=== PATIENT | male | born 1960 | race Caucasian/White ===

== ENCOUNTER 2017-12-19 16:29 | Emergency (ER) | payer MEDICAID, SELFPAY ==
[2017-12-19 16:31] VITALS: BP 122/74; PULSE 82; RESP 18; TEMP 36.4; O2SAT 96; BMI 27.6
[2017-12-19 17:41] LABS: Absolute Lymphocyte Count 1.88 X10^3/ul (0.83-4.51); Absolute Neutrophil Count 10.2 X10^3/uL (2.0-7.7); Basophil# 0.06 X10^3/uL; Basophil% 0.4 % (0-1); Eosinophil# 0.19 X10^3/uL; Eosinophils% 1.4 % (0-5); Hematocrit 41.7 % (40-54); Hemoglobin 14.7 g/dl (13.0-16.5); Lymphocyte # 1.88 X10^3/ul (4.0); Lymphocyte % 13.7 % (19-41); Mean Corp Hgb Conc 35.3 g/gl (32-36); Mean Corpuscular Volume 90.7 fL (80-94); Mean Platelet Vol. 9.2 fl (6.2-12.0); Monocyte# 1.28 X10^3/uL; Monocyte% 9.3 % (0-10); Neutrophil # 10.24 X10^3/uL (2.7-7.7); Neutrophil % 74.9 % (47-70); Platelet Count 212 K/mm3 (150-450); RBC Distribution Width CV 13.1 % (11.6-14.6); RBC Distribution Width SD 42.6 fl (35.1-43.9); White Blood Count 13.7 K/mm3 (4.4-11.0)
--- NOTE | 2017-12-19 17:47 | NURSING ---
PAGED DR KRISTIN TAYLOR, [facility] [employer], FOR DR FLYNN. HE HAS 1 HR TO RESPOND
--- NOTE | 2017-12-19 17:52 | NURSING ---
TOBI CALLED BACK FOR DR FLYNN
[2017-12-19 18:00] LABS: POSITIVE COUNT NO; POSITIVE DIFFERENTIAL NO; POSITIVE MORPHOLOGY NO
--- NOTE | 2017-12-19 18:06 | ED.VIS.GEN ---
History of Present Illness Chief Complaint: Wound Informant: Patient, Family Onset: Days - 3 Context: Gradual Onset Timing: Continuous Quality: sore Location: back Current Severity: Severe Maximum Severity: Severe Worsened by: laying against wound, palpation Relieved by: nothing Associated Symptoms: malaise, low-grade fevers Narrative: Patient had surgery 1 week ago today for melanoma on his back, including lymph node sampling from both axillae. His pain was manageable postoperatively, but in the past 3 days or so, he has been having significant increase in the pain in the area of the surgery on his back and has been draining a profuse amount of fluid according to his family who keeps changing the gauze over top of it. It has been watery and bloody, no pus. He has been feeling malaised and having low-grade temperatures in a period of time as well. He was seen on Sunday and the wounds looked okay, but according to the family who monitors it, it is looking more red around the incision since then. - Past Medical History (1) Melanoma Status: Chronic (2) HTN (hypertension) Status: Chronic (3) Hyperlipidemia Status: Chronic Past Medical History - Allergies and Home Meds Allergies/Adverse Reactions: Allergies amoxicillin trihydrate [From Augmentin] Allergy (Verified 12/19/17 16:31) Hives potassium clavulanate [From Augmentin] Allergy (Verified 12/19/17 16:31) Hives Primary Care Physician: Kiya Serna MD [Primary Care Provider] - Smoking Status: Former smoker Review of Systems General: Reports: Fever, Malaise Respiratory: Denies: Dyspnea, Cough Gastrointestinal: Denies: Abdominal pain, Nausea, Vomiting, Diarrhea Musculoskeletal: Reports: Back pain. Denies: Neck pain, Swelling, Extremity Pain Neurological: Denies: Headache, Weakness, Parasthesia, Numbness Physical Exam Vital Signs/Narrative: Vital Signs Temp Pulse Resp BP Pulse Ox 12/19/17 16:31 97.6 F L 82 18 122/74 H 96 Inital Vital Signs reviewed: Yes General: Well nourished, Well developed Head: Normocephalic, Atraumatic Eyes: Perrl, EOMI ENT: Moist mucous membranes, No rhinorrhea Neck: Supple, Nontender, No lymphadenopathy Respiratory: No distress, Chest nontender Back: - - Vertical thoracic incision just left of midline about 10 inches in length is erythematous along the distribution of the incision without a significant cellulitis, and swollen diffusely with active serosanguineous discharge from the center of it. There is no dehiscence. There are several different sutures intact; a running suture at the top, a running suture at the bottom, and several simple interrupted sutures along the center, they all appear to be a Prolene. The entire area is very tender. Extremities: Nontender, No edema, - - Axillary surgical incisions are healing well without tenderness, erythema, or dehiscence. There is postoperative nontender ecchymoses. Skin: Normal color, No rash Neurological: Alert, Oriented x3, Cranial nerves II-XII grossly intact, Normal Strength, Normal Sensation Psychological: Normal affect Diagnostic/Tx/Re-eval Laboratory Tests 12/19/17 Range/Units 17:30 WBC 13.7 H (4.4-11.0) K/mm3 RBC 4.60 (4.6-6.2) M/mm3 Hgb 14.7 (13.0-16.5) g/dl Hct 41.7 (40-54) % MCV 90.7 (80-94) fL MCH 32.0 (27.0-32.0) pg MCHC 35.3 (32-36) g/gl RDW 13.1 (11.6-14.6) % RDW Differential 42.6 (35.1-43.9) fl Plt Count 212 (150-450) K/mm3 MPV 9.2 (6.2-12.0) fl Immature Gran % (Auto) 0.300 (0.0-0.9) % Neut % (Auto) 74.9 H (47-70) % Lymph % (Auto) 13.7 L (19-41) % [place] % (Auto) 9.3 (0-10) % Eos % (Auto) 1.4 (0-5) % Baso % (Auto) 0.4 (0-1) % Absolute Neuts (auto) 10.2 H (2.0-7.7) X10^3/uL Absolute Lymphs (auto) 1.88 (0.83-4.51) X10^3/ul Total Counted Not Reportable - Medical Decision Making Labs show mild leukocytosis. I discussed with the plastics resident, who was actually in the operating room for this patient's case. He discussed with the surgeon, they agreed that it would be advised that I attempt to aspirate as much fluid from the surgical site as possible. I did this after sterilizing the center of the wound, from which the fluid was being expressed, with Betadine, followed by inserting an 18-gauge needle into the pre-existing hole painlessly and aspirating a total of 30 cc of serosanguineous fluid. Additional fluid was expressed by gently pressing on the entire area, from the same hole. I did this is much as I could. He was given a dose of IV vancomycin, surgery agreed that he could be discharged on Bactrim to cover MRSA, and will set up a follow-up appointment for him to be seen in 2 days. As discussed with patient, the fluid was sent for a wound culture. ED Disposition - Plan for ED Patient: Disposition: Home or Assisted Living Chief Complaint: Wound Diagnosis: Postoperative wound infection Instructions: ED Wound Infec After Surgery, Wound Culture Prescriptions: Smz/Tmp Ds [Bactrim Ds] 1 tab PO BID #20 tab Referrals: Al Calvert [Other] (or PA on 12/21/2017)
[2017-12-19 18:46] VITALS: RESP 16; O2SAT 98
[2017-12-19] MEDS: Morphine 4 MG/ML Syringe IV (19:11)
[2017-12-19 20:11] VITALS: BP 128/78; PULSE 88; RESP 16; O2SAT 98
== END 2017-12-19 20:13 | disposition home or self-care (01) ==
PROVIDERS: Emergency Provider Emergency Medicine; Family Provider Internal Medicine; PCP Internal Medicine
DX: T81.49XA Infection following a procedure, other surgical site, initial encounter (principal); I10 Essential (primary) hypertension; E78.5 Hyperlipidemia, unspecified; Z85.820 Personal history of malignant melanoma of skin; Z87.891 Personal history of nicotine dependence
CPT/HCPCS: 10021; 85025; 87070; 87077; 87186; 87205; 96365; 96366; 96375; 99283; J7040; A4216

== ENCOUNTER 2018-04-01 15:33 | Outpatient (RCR) | payer MEDICAID, SELFPAY ==
--- NOTE | 2018-04-02 07:48 | HP.OTEVAL_ITS ---
Patient's Visit Information JOHN CORRIGAN is a 57 year old M, referred to Occupational Therapy by Shukri Zeng MD, with a diagnosis of Left dypuytren's contracture, left MF trigger finger. Date of Evaluation: 04/01/18 Occupational Therapist: Adelia Lawson, OTR/L, CHT - Subjective Subjective: pt states he has had Dupuytren's contracture for years. pt states it was to the point he could not hold a hammer, or put his left hand in his pocket. Pt states he also developed a trigger finger on his left MF and opted to have the trigger finger released as well. pt had injection of sunday and attends today following manipulation in need of custom extension orthosis for left hand. - ROM MP: left LF 0/25 PIP: left LF -35/65 DIP: left LF 0/20 ROM Comments: pt demo all other digit ROM WFL. left LF more limited at this time. - Quick DASH-Disab of Arm,Shoulder& Hand Quick DASH Score: 72.7250 - Goals Goal:: pt will demo the ability to form a composite fist to hold and recieve coins by d/c. pt will demo digit ext to no less than-[address] hand in pocket ind. by d/c Goal:: pt will demo a understanding of donning/doffing of custom orthosis ind. at end of 1st session. pt will demo understanding of wear and care of orthosis and to return to facility to have therapist adj orthosis as needed by end of 1st session. - Rehabilitation General Assessment: S/P left xiafllex injection left IF/LF with left MF trigger finger release on . Pt arrives with order for left hand orthoplast etension splint and motion program. Pt demo need for skilled OT services to ensure pts use of custom orthosis and performance of HEP. Pt was fabricated custom orthosis for left hand, ed. on use and precautions. pt also ed. on tendon gulide ex. to regain functional ROM. pt ed. on edema control paul. and to perform ROM ex about every hour for 10 min. pt demo understanding of orthosis use and HEP and is agreeable to POC Rehabilitation Potential: Excellent - Anticipated Interventions Anticipated Interventions: A/AAROM/PROM, Edema Control, Orthoses, Fine Motor Coord/Santos - Visit Plan Frequency: Every Other Week Duration: 2 Weeks TEXT: Thank you for the opportunity to evaluate your patient. For Medicare and Medicare HMO plans, please review the plan of care and approve it. It will need to be FAXED BACK to us at [phone] for Medicare purposes. Please let me know if there are questions or concerns regarding this plan of care. Physician Signature: Date:
--- NOTE | 2018-06-05 14:22 | HP.OT.NRP ---
HP - Discharge Summary - Patient Information JOHN CORRIGAN was seen in my office for initial evaluation on 04/01/18. The following Plan of Care was established for this patient: Initial Frequency: Every Other Week Initial Duration: 2 Weeks - Anticipated Interventions Anticipated Interventions: A/AAROM/PROM, Edema Control, Orthoses, Fine Motor Coord/Santos This patient was last seen in our office 04/01/18. Pertinent comments regarding their Occupational therapy will appear below: PT seen for initial OT eval only. No further therapy sessions have been scheduled pt d/c at this time. At this point I will be discontinuing this patient from occupational therapy. I would be happy to see this patient again in the future if found appropriate by the physician. Thank you! Adelia Lawson, OTR/L, CHT
== END 2018-04-01 19:00 | disposition home or self-care (01) ==
LOC: OT 15:33
PROVIDERS: Family Provider Internal Medicine; PCP Internal Medicine; Referring Provider Orthopaedic Surgery; Visit Provider Orthopaedic Surgery
DX: M72.0 Palmar fascial fibromatosis [Dupuytren] (principal)
CPT/HCPCS: 97165; 97760

== ENCOUNTER 2021-07-25 15:37 | Emergency (ER) | payer MEDICAID, SELFPAY ==
[2021-07-25 15:48] VITALS: BP 114/92; PULSE 80; RESP 16; TEMP 36.1; O2SAT 97; BMI 27.6
--- NOTE | 2021-07-25 16:20 | RAD_ITS ---
STUDY: X-RAY - CERVICAL SPINE REASON FOR EXAM: Male, 60 years old. Injury/Pain TECHNIQUE: XR Spine Cervical 2 or 3 Views COMPARISON: None FINDINGS: Normal anterior atlantoaxial articulation. The odontoid process is obscured by the overlying hard palate on the open mouth view. Therefore, it is not fully evaluated by plain film. There is straightening of the normal cervical lordosis. There is multi-level endplate spondylosis. There is multi-level degenerative disc disease with multilevel disc space narrowing. There is multi-level osseous foraminal stenosis. The soft tissue structures are unremarkable. RAD/Cerv Spine 2 or 3 Views IMPRESSION: There are degenerative changes as noted above. The odontoid process is obscured by the overlying hard palate on the open mouth view. Therefore, it is not fully evaluated by plain film. Electronically Signed: Phong Jackson MD at 16:46 EDT ,
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
[2021-07-25 17:02] VITALS: RESP 18
== END 2021-07-25 17:25 | disposition home or self-care (01) ==
PROVIDERS: Emergency Provider Emergency Medicine; PCP Internal Medicine; Visit Provider Emergency Medicine
DX: S16.1XXA Strain of muscle, fascia and tendon at neck level, initial encounter (principal); V43.52XA Car driver injured in collision with other type car in traffic accident, initial encounter
CPT/HCPCS: 72040; 99284

== ENCOUNTER 2021-08-03 12:56 | Emergency (ER) | payer MEDICAID, SELFPAY ==
[2021-08-03 12:57] VITALS: BP 97/59; PULSE 75; RESP 14; TEMP 36.4; O2SAT 97; BMI 27.6
--- NOTE | 2021-08-03 15:42 | CT_ITS ---
STUDY: CT LUMBAR SPINE WITHOUT CONTRAST REASON FOR EXAM: Male, 60 years old. back pain X 3 DAYS, H/O cancer RADIATION DOSAGE (If Supplied By Facility): CTDIvol = ( 16.39 ) mGy, DLP = ( 467.94 ) mGycm TECHNIQUE: The patient was scanned in a multi detector CT scanner. High resolution transaxial imaging was performed. Images were obtained from T12 to S1. Sagittal and coronal images were reconstructed. Individualized dose optimization techniques were used for this CT. COMPARISON: None FINDINGS: Normal lumbar lordosis. There is no substantial scoliosis. Normal vertebrae of the lumbar spine. L1-2: Normal endplates. Normal disc height and morphology. Normal bilateral facet joints. Normal central canal and bilateral lateral recesses. Normal bilateral intervertebral neural foramina. L2-3: Normal endplates. Normal disc height and morphology. Normal bilateral facet joints. Normal central canal and bilateral lateral recesses. Normal bilateral intervertebral neural foramina. L3-4: Mild broad disc protrusion produces mild spinal stenosis and mild bilateral neural foraminal stenosis. L4-5: Mild broad disc protrusion produces mild spinal stenosis and mild bilateral neural foraminal stenosis. L5-S1: Mild broad disc protrusion produces mild spinal stenosis and mild bilateral neural foraminal stenosis Normal visualized paraspinous soft tissue structures. CT/Spine Lumbar without Contrast IMPRESSION: Multilevel degenerative changes, as described above. Electronically Signed: Billy Burk MD at 17:03 EDT ,
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
[2021-08-03] MEDS: morphine 10 MG/ML Syringe IM (15:57)
[2021-08-03] MEDS: Ondansetron 4 MG/2 ML Vial IM (15:57)
[2021-08-03 16:00] VITALS: BP 136/112
[2021-08-03 17:15] VITALS: BP 127/102
== END 2021-08-03 17:43 | disposition home or self-care (01) ==
PROVIDERS: Emergency Provider Emergency Medicine; PCP Internal Medicine; Visit Provider Emergency Medicine
DX: M54.50 Low back pain, unspecified (principal); I10 Essential (primary) hypertension; E78.5 Hyperlipidemia, unspecified; Z85.820 Personal history of malignant melanoma of skin; Z79.899 Other long term (current) drug therapy
CPT/HCPCS: 72131; 96372; 99282; J2405